=== PATIENT | male | born 1975 | race Caucasian/White ===

== ENCOUNTER 2021-03-07 15:42 | Emergency (ER) | payer OTHER ==
[2021-03-07 15:58] VITALS: BP 175/84; PULSE 90; TEMP 98.1; BMI 28.0
[2021-03-07] MEDS ORDERED: DIPHTH,PERTUSS(ACELL),TET 0.5 ML DISP.SYRIN IM ONE ×2 (16:44→16:47)
== END 2021-03-07 16:55 | disposition home or self-care (01) ==
LOC: JER 15:42
PROC: 0JQ10ZZ Repair Face Subcutaneous Tissue and Fascia, Open Approach (ICD-10-PCS; principal; 2021-03-07)
PROC: 3E0234Z Introduction of Serum, Toxoid and Vaccine into Muscle, Percutaneous Approach (ICD-10-PCS; 2021-03-07)
DX: S01.01XA Laceration without foreign body of scalp, initial encounter (principal)
CPT/HCPCS: 90715; 99284-25

== ENCOUNTER 2021-03-14 08:32 | Emergency (ER) | payer OTHER ==
[2021-03-14 08:44] VITALS: BP 129/82; PULSE 77; TEMP 98.3; BMI 27.8
== END 2021-03-14 09:45 | disposition home or self-care (01) ==
LOC: JERFT 08:32
DX: Z48.02 Encounter for removal of sutures (principal)
CPT/HCPCS: 99281-25

== ENCOUNTER 2022-03-12 04:00 | Emergency (ER) | payer OTHER ==
[2022-03-12 04:06] VITALS: BP 162/93; PULSE 76; TEMP 98.1; BMI 27.3
[2022-03-12] MEDS ORDERED: KETOROLAC TROMETHAMINE 30 MG/1 ML VIAL IVPUSH ONE (04:14)
[2022-03-12] MEDS ORDERED: SODIUM CHLORIDE 0.9% 500 ML INFUS.BAG IV ONE (04:14)
[2022-03-12] MEDS ORDERED: KETOROLAC TROMETHAMINE 30 MG/1 ML VIAL ONE (04:23)
[2022-03-12 06:08] LABS: BASO % 1.2 % (0-2.0); HEMATOCRIT 44.7 % (35.4-49); HEMOGLOBIN 15.2 GM/dL (11.7-16.9); LYMPH % 34.7 % (8-40); MCHC 34.1 g/dl (32.0-35.9); MEAN CELL VOLUME 85.2 fl (80-96); NEUT % 51.1 % (42.8-82.8); PLATELET COUNT 334 10^3/uL (134-434); RBC 5.24 M/mm3 (4.00-5.60); RDW 15.6 % (11.9-15.9); WHITE BLOOD COUNT 6.9 K/mm3 (4.0-10.0)
[2022-03-12 06:15] LABS: EPI CELLS 2 /uL (0-25.1); HYALINE CASTS 0 /uL (0-3.1); PH,URINE 5.5 (5.0-8.0); URINE APPEARANCE CLEAR; URINE BACTERIA 0 /uL (0-1359); URINE BILIRUBIN NEGATIVE (NEGATIVE); URINE COLOR YELLOW; URINE GLUCOSE (UA) NEGATIVE (NEGATIVE); URINE KETONE TRACE (NEGATIVE); URINE LEUK ESTERASE NEGATIVE (NEGATIVE); URINE NITRITE NEGATIVE (NEGATIVE); URINE PROTEIN NEGATIVE (NEGATIVE); URINE RBC 941 /uL (0-23.9); URINE UROBILINOGEN 0.2 mg/dL (0.2-1.0); URINE WBC 4 /uL (0-25.8)
[2022-03-12 06:28] LABS: ALBUMIN 4.2 g/dl (3.4-5.0); CALCIUM 8.9 mg/dL (8.5-10.1)
[2022-03-12 06:29] LABS: BLOOD UREA NITROGEN 16.3 mg/dL (7-18)
[2022-03-12 06:31] LABS: CREATININE 1.4 mg/dL (0.55-1.3)
[2022-03-12 06:38] LABS: BILIRUBIN,TOTAL 0.8 mg/dL (0.2-1); TOT PROT 7.9 g/dl (6.4-8.2)
== END 2022-03-12 06:47 | disposition home or self-care (01) ==
LOC: JER 04:00
PROC: 3E0233Z Introduction of Anti-inflammatory into Muscle, Percutaneous Approach (ICD-10-PCS; principal; 2022-03-12)
DX: R10.9 Unspecified abdominal pain (principal)
CPT/HCPCS: 36415; 80053; 81003; 85025; 87086; 99284-25

== ENCOUNTER 2023-05-15 09:02 | Emergency (ER) | payer OTHER ==
[2023-05-15 09:07] VITALS: PULSE 59; RESP 18; BMI 26.7
[2023-05-15] MEDS ORDERED: KETOROLAC TROMETHAMINE 30 MG/1 ML VIAL IVPUSH ONE (09:20)
[2023-05-15] MEDS ORDERED: SODIUM CHLORIDE 0.9% 500 ML INFUS.BAG IV ONE (09:21)
[2023-05-15] MEDS ORDERED: KETOROLAC TROMETHAMINE 30 MG/1 ML VIAL ONE (09:31)
[2023-05-15 09:59] LABS: EPI CELLS 8 /uL (0-25.1); HYALINE CASTS 1 /uL (0-3.1); PH,URINE 5.5 (5.0-8.0); URINE APPEARANCE CLEAR; URINE BACTERIA 28 /uL (0-1359); URINE BILIRUBIN NEGATIVE (NEGATIVE); URINE COLOR YELLOW; URINE GLUCOSE (UA) NEGATIVE (NEGATIVE); URINE KETONE NEGATIVE (NEGATIVE); URINE LEUK ESTERASE NEGATIVE (NEGATIVE); URINE NITRITE NEGATIVE (NEGATIVE); URINE PROTEIN TRACE (NEGATIVE); URINE RBC 45 /uL (0-23.9); URINE UROBILINOGEN 0.2 mg/dL (0.2-1.0); URINE WBC 26 /uL (0-25.8)
[2023-05-15 10:11] LABS: EOS % 6.8 % (0-4.5); HEMATOCRIT 43.6 % (35.4-49); HEMOGLOBIN 14.3 GM/dL (11.7-16.9); LYMPH % 24.1 % (8-40); MCH 27.4 pg (25.7-33.7); MCHC 32.7 g/dl (32.0-35.9); MEAN CELL VOLUME 83.6 fl (80-96); MEAN PLT VOLUME 9.2 fl (7.5-11.1); NEUT % 62.1 % (42.8-82.8); PLATELET COUNT 289 10^3/uL (134-434); RBC 5.21 M/mm3 (4.00-5.60); RDW 14.8 % (11.9-15.9); WHITE BLOOD COUNT 6.3 K/mm3 (4.0-10.0)
[2023-05-15 10:22] LABS: POTASSIUM 4.7 mmol/L (3.5-5.1)
[2023-05-15 10:24] LABS: ALBUMIN 3.9 g/dl (3.4-5.0); CALCIUM 8.8 mg/dL (8.5-10.1)
[2023-05-15 10:27] LABS: CREATININE 1.1 mg/dL (0.55-1.3)
[2023-05-15 10:29] LABS: BILIRUBIN,TOTAL 0.4 mg/dL (0.2-1); TOT PROT 7.5 g/dl (6.4-8.2)
[2023-05-15 11:26] VITALS: BP 140/87; TEMP 98.1
== END 2023-05-15 12:01 | disposition home or self-care (01) ==
LOC: JER 09:02
PROC: 3E0333Z Introduction of Anti-inflammatory into Peripheral Vein, Percutaneous Approach (ICD-10-PCS; principal; 2023-05-15)
DX: R10.9 Unspecified abdominal pain (principal); N23 Unspecified renal colic; M54.50 Low back pain, unspecified; N13.2 Hydronephrosis with renal and ureteral calculous obstruction
CPT/HCPCS: 36415; 76775-TC; 80053; 81003; 85025; 87086; 99284-25

== ENCOUNTER 2023-05-16 04:44 | Emergency (ER) | payer OTHER ==
[2023-05-16 04:52] VITALS: RESP 18; BMI 26.7
[2023-05-16] MEDS ORDERED: KETOROLAC TROMETHAMINE 60 MG/2 ML VIAL IM ONE (05:05)
[2023-05-16] MEDS ORDERED: KETOROLAC TROMETHAMINE 60 MG/2 ML VIAL ONE (05:27)
[2023-05-16 08:27] LABS: PH,URINE 5.5 (5.0-8.0); URINE APPEARANCE CLEAR; URINE BILIRUBIN NEGATIVE (NEGATIVE); URINE COLOR YELLOW; URINE GLUCOSE (UA) NEGATIVE (NEGATIVE); URINE KETONE NEGATIVE (NEGATIVE); URINE LEUK ESTERASE NEGATIVE (NEGATIVE); URINE NITRITE NEGATIVE (NEGATIVE); URINE PROTEIN NEGATIVE (NEGATIVE); URINE UROBILINOGEN 0.2 mg/dL (0.2-1.0)
[2023-05-16 09:27] VITALS: BP 145/96; PULSE 69; TEMP 97.9
== END 2023-05-16 09:20 | disposition home or self-care (01) ==
LOC: JER 04:44
PROC: 3E0233Z Introduction of Anti-inflammatory into Muscle, Percutaneous Approach (ICD-10-PCS; principal; 2023-05-16)
DX: M54.50 Low back pain, unspecified (principal); N20.1 Calculus of ureter
CPT/HCPCS: 74176-TC; 81003; 87086; 99284-25

== ENCOUNTER 2023-07-27 17:32 | Emergency (ER) | payer OTHER ==
[2023-07-27 17:45] VITALS: BP 152/75; PULSE 84; RESP 17; TEMP 98.5; BMI 26.7
[2023-07-27] MEDS ORDERED: KETOROLAC TROMETHAMINE 30 MG/1 ML VIAL IVPUSH ONE (18:26)
[2023-07-27] MEDS ORDERED: ONDANSETRON 4 MG/2 ML VIAL IVPUSH ONE ×2 (18:26→20:27)
[2023-07-27] MEDS ORDERED: SODIUM CHLORIDE 1,000 ML IV STA (18:28)
[2023-07-27] MEDS ORDERED: KETOROLAC TROMETHAMINE 30 MG/1 ML VIAL ONE ×3 (18:59→19:02)
[2023-07-27 19:00] LABS: EPI CELLS 1 /uL (0-25.1); HYALINE CASTS 0 /uL (0-3.1); URINE APPEARANCE CLEAR; URINE BACTERIA 1 /uL (0-1359); URINE BILIRUBIN NEGATIVE (NEGATIVE); URINE COLOR YELLOW; URINE GLUCOSE (UA) NEGATIVE (NEGATIVE); URINE KETONE NEGATIVE (NEGATIVE); URINE LEUK ESTERASE NEGATIVE (NEGATIVE); URINE NITRITE NEGATIVE (NEGATIVE); URINE PROTEIN NEGATIVE (NEGATIVE); URINE RBC 1333 /uL (0-23.9); URINE UROBILINOGEN 0.2 mg/dL (0.2-1.0); URINE WBC 6 /uL (0-25.8)
[2023-07-27] MEDS ORDERED: ONDANSETRON 4 MG/2 ML VIAL ONE ×2 (19:00→20:31)
[2023-07-27 19:33] LABS: BASO % 0.8 % (0-2.0); EOS % 4.1 % (0-4.5); HEMATOCRIT 43.8 % (35.4-49); HEMOGLOBIN 14.3 GM/dL (11.7-16.9); LYMPH % 22.6 % (8-40); MCH 26.4 pg (25.7-33.7); MCHC 32.7 g/dl (32.0-35.9); MEAN CELL VOLUME 80.7 fl (80-96); MEAN PLT VOLUME 8.6 fl (7.5-11.1); MONO % 6.8 % (3.8-10.2); NEUT % 65.7 % (42.8-82.8); PLATELET COUNT 382 10^3/uL (134-434); RBC 5.42 M/mm3 (4.00-5.60); RDW 15.3 % (11.9-15.9); WHITE BLOOD COUNT 8.4 K/mm3 (4.0-10.0)
[2023-07-27 20:01] LABS: POTASSIUM 4.8 mmol/L (3.5-5.1)
[2023-07-27 20:06] LABS: CREATININE 1.5 mg/dL (0.55-1.3)
[2023-07-27 20:08] LABS: BILIRUBIN,TOTAL 0.3 mg/dL (0.2-1); TOT PROT 7.8 g/dl (6.4-8.2)
[2023-07-27 20:12] LABS: ALBUMIN 3.9 g/dl (3.4-5.0); CALCIUM 8.9 mg/dL (8.5-10.1)
[2023-07-27 20:13] LABS: BLOOD UREA NITROGEN 17.2 mg/dL (7-18)
== END 2023-07-27 20:35 | disposition home or self-care (01) ==
LOC: JER 17:32
PROC: 3E0333Z Introduction of Anti-inflammatory into Peripheral Vein, Percutaneous Approach (ICD-10-PCS; principal; 2023-07-27)
PROC: 3E033GC Introduction of Other Therapeutic Substance into Peripheral Vein, Percutaneous Approach (ICD-10-PCS; 2023-07-27)
PROC: 3E033GC Introduction of Other Therapeutic Substance into Peripheral Vein, Percutaneous Approach (ICD-10-PCS; 2023-07-27)
PROC: 3E0337Z Introduction of Electrolytic and Water Balance Substance into Peripheral Vein, Percutaneous Approach (ICD-10-PCS; 2023-07-27)
DX: R10.9 Unspecified abdominal pain (principal); R11.0 Nausea; N13.2 Hydronephrosis with renal and ureteral calculous obstruction; R79.89 Other specified abnormal findings of blood chemistry
CPT/HCPCS: 36415; 74176-TC; 80053; 81003; 85025; 87086; 99284-25